=== PATIENT | male | born 1985 | race Caucasian/White ===

== ENCOUNTER 2017-02-16 18:23 | Emergency (ER) | payer MEDICAID ==
[~2017-02-16] VITALS: Ht 175.3 cm; Wt 72.7 kg
[2017-02-16] MEDS ORDERED: LIDOCAINE HCL/PF 1% 2 ML VIAL IM ONE (20:45)
[2017-02-16] MEDS ORDERED: CefTRIAXone SODIUM 1 GM/VIAL IM ONE (20:45)
[2017-02-16] MEDS ORDERED: IBUPROFEN 800 MG TABLET PO ONE (20:45)
[2017-02-16 20:46] VITALS: BP 132/75
== END 2017-02-16 22:18 | disposition home or self-care (01) ==
LOC: EMS 18:28
DX: L02.11 Cutaneous abscess of neck (principal); L03.221 Cellulitis of neck
CPT/HCPCS: 96372; 99283; J0696; J3490